=== PATIENT | female | born 1995 | race Caucasian/White ===

== ENCOUNTER 2017-09-14 18:30 | Emergency (ER) | payer SELFPAY ==
[~2017-09-14] VITALS: Ht 170.2 cm; Wt 64.0 kg
[~2017-09-14 18:30] MED LIST: Z.0.BCPILL PO
[2017-09-14 18:33] VITALS: BP 110/72; PULSE 73; RESP 14; TEMP 98.7; O2SAT 100
[2017-09-14] MEDS ORDERED: SODIUM CHLORIDE 0.9% FLUSH 10 ML FLUSH IVF PRN (19:15)
[2017-09-14] MEDS ORDERED: SODIUM CHLOR 0.9% 1000 ML INJ 1,000 ML IV ONE (19:15)
--- NOTE | 2017-09-14 19:21 | PD ---
HPI Chief Complaint: Syncope/Near-Syncope Time Seen by Provider: 19:15 Travel History International Travel<30 days: No Contact w/Intl Traveler<30days: No Traveled to known affect area: No History of Present Illness HPI 22-year-old female patient with history of previous syncopal episodes, worked up in the past, not found to have any obvious causes, here because she had a syncopal episode while having a bowel movement today. She apparently did hit her head and has a forehead ecchymosis. She denies any other injuries. She denies any chest pains, palpitations, shortness of breath, or other symptoms. She states that after she woke up, she did have a episode of vomiting and diarrhea. Modifying Factors: None Associated Signs & Symptoms: Syncope, nausea, vomiting, diarrhea Risk factor: Previous syncopal episodes PFSH Past Medical History ADHD: No Autoimmune Disease: No Blood Disorders: No Cancer: No Cardiovascular Problems: No Diabetes: No Diminished Hearing: No Genitourinary: No Medical other: Yes (hx "passing out") Musculoskeletal: No Neurologic: No Psychiatric: No Respiratory: No Immunizations Current: Yes Migraines: No Seizures: No Thyroid Disease: No Ulcer: No Tetanus Vaccination: Unknown Influenza Vaccination: No ?: Not LMP: 09/14/17 Past Surgical History Surgical History: No Previous Surgery Appendectomy: No Cholecystectomy: No Social History Alcohol Use: Yes (occasionally) Tobacco Use: No Substance Use: No (HX OF OVER THE COUNTER MEDICATION ABUSE) Allergies-Medications (Allergen,Severity, Reaction): Coded Allergies: clarithromycin (Unverified Allergy, Severe, SWELLING-SOB, 09/14/17) Reported Meds & Prescriptions Reported Meds & Active Scripts Active Reported Control Pills (Miscellaneous Medication) Tab 1 Tab PO DAILY Review of Systems Except as stated in HPI: all other systems reviewed are Neg Physical Exam Narrative GENERAL: Well-developed young female patient currently not in acute distress. Awake and oriented 3. SKIN: Focused skin assessment warm/dry. HEAD: Small area of ecchymosis over the left forehead. Normocephalic. EYES: Pupils equal and round. No scleral icterus. No injection or drainage. ENT: No nasal bleeding or discharge. Mucous membranes pink and moist. NECK: Trachea midline. No JVD. CARDIOVASCULAR: Regular rate and rhythm. No murmur appreciated. RESPIRATORY: No accessory muscle use. Clear to auscultation. Breath sounds equal bilaterally. GASTROINTESTINAL: Abdomen soft, non-tender, nondistended. Hepatic and splenic margins not palpable. MUSCULOSKELETAL: No obvious deformities. No clubbing. No cyanosis. No edema. NEUROLOGICAL: Awake and alert. No obvious cranial nerve deficits. Motor grossly within normal limits. Normal speech. PSYCHIATRIC: Appropriate mood and affect; insight and judgment normal. Data Data Last Documented VS Vital Signs Date Time Temp Pulse Resp B/P (MAP) Pulse Ox O2 Delivery O2 Flow Rate FiO2 09/14/17 19:51 89 16 100 Room Air 09/14/17 18:33 98.7 Orders Orders Electrocardiogram (09/14/17 19:15) Ed Urine Pregnancytest Poc (09/14/17 19:15) Complete Blood Count With Diff (09/14/17 19:15) Comprehensive Metabolic Panel (09/14/17 19:15) Magnesium (Mg) (09/14/17 19:15) Urinalysis - C+S If Indicated (09/14/17 19:15) Ct Brain W/O Iv Contrast(Rout) (09/14/17 19:15) Ecg Monitoring (09/14/17 19:15) Iv Access Insert/Monitor (09/14/17 19:15) Oximetry (09/14/17 19:15) Sodium Chloride 0.9% Flush (Ns Flush) (09/14/17 19:15) Sodium Chlor 0.9% 1000 Ml Inj (Ns 1000 M (09/14/17 19:15) Ed Discharge Order (09/14/17 21:40) Labs Laboratory Tests Test 09/14/17 19:43 09/14/17 21:15 White Blood Count 11.8 TH/MM3 Red Blood Count 4.72 MIL/MM3 Hemoglobin 14.0 GM/DL Hematocrit 41.0 % Mean Corpuscular Volume 86.8 FL Mean Corpuscular Hemoglobin 29.5 PG Mean Corpuscular Hemoglobin Concent 34.0 % Red Cell Distribution Width 13.0 % Platelet Count 259 TH/MM3 Mean Platelet Volume 7.9 FL Neutrophils (%) (Auto) 81.4 % Lymphocytes (%) (Auto) 14.2 % Monocytes (%) (Auto) 3.9 % Eosinophils (%) (Auto) 0.1 % Basophils (%) (Auto) 0.4 % Neutrophils # (Auto) 9.6 TH/MM3 Lymphocytes # (Auto) 1.7 TH/MM3 Monocytes # (Auto) 0.5 TH/MM3 Eosinophils # (Auto) 0.0 TH/MM3 Basophils # (Auto) 0.0 TH/MM3 CBC Comment DIFF FINAL Differential Comment Blood Urea Nitrogen 9 MG/DL Creatinine 0.81 MG/DL Random Glucose 97 MG/DL Total Protein 8.1 GM/DL Albumin 4.5 GM/DL Calcium Level 9.7 MG/DL Magnesium Level 2.0 MG/DL Alkaline Phosphatase 62 U/L Aspartate Amino Transf (AST/SGOT) 13 U/L Alanine Aminotransferase (ALT/SGPT) 11 U/L Total Bilirubin 0.8 MG/DL Sodium Level 139 MEQ/L Potassium Level 4.3 MEQ/L Chloride Level 107 MEQ/L Carbon Dioxide Level 24.5 MEQ/L Anion Gap 8 MEQ/L Estimat Glomerular Filtration Rate 87 ML/MIN Urine Color LIGHT-YELLOW Urine Turbidity CLEAR Urine pH 7.5 Urine Specific [place] 1.007 Urine Protein NEG mg/dL Urine Glucose (UA) NEG mg/dL Urine Ketones TRACE mg/dL Urine Occult Blood NEG Urine Nitrite NEG Urine Bilirubin NEG Urine Urobilinogen LESS THAN 2.0 MG/DL Urine Leukocyte Esterase NEG Urine RBC 1 /hpf Urine WBC LESS THAN 1 /hpf Microscopic Urinalysis Comment CULT NOT INDICATED MDM Medical Decision Making Medical Screen Exam Complete: Yes Emergency Medical Condition: Yes Medical Record Reviewed: Yes Interpretation(s) EKG shows normal sinus rhythm with a rate of 54 bpm. No signs of acute ST elevations or depressions. I do not see any signs of delta waves. Laboratory Tests Test 09/14/17 19:43 09/14/17 21:15 White Blood Count 11.8 TH/MM3 (4.0-11.0) Neutrophils (%) (Auto) 81.4 % (16.0-70.0) Neutrophils # (Auto) 9.6 TH/MM3 (1.8-7.7) Aspartate Amino Transf (AST/SGOT) 13 U/L (15-37) Estimat Glomerular Filtration Rate 87 ML/MIN (>89) Urine Ketones TRACE mg/dL (NEG) Last [address] 09/14/17 1910 Signed Impressions: Service Date/Time: Thursday, September 14, 2017 20:40 - CONCLUSION: No acute abnormality is identified. Sam Davies MD Differential Diagnosis Vasovagal syncope versus dehydration versus dysrhythmias versus intracranial injuries Narrative Course She has no focal neurological deficits currently. CAT scan of the brain is negative for any signs of acute intracranial processes. She has not . Lab work did not indicate significant electrolyte abnormalities. EKG did show initially that her heart rate was a little low in the 50s but her heart rate was fairly normal on further evaluation in the ER. At this point, she is asymptomatic and she has had multiple episodes of previous syncope. She may have had a vasovagal episode at this point. Abdomen is benign I do not suspect an acute intra-abdominal process. My plan would be to release her with follow- up to primary care physician. Return for any new issues or worsening symptoms as needed. The plan has been discussed with patient and parents and they state understanding. Diagnosis Primary Impression: Syncope Disposition: 01 DISCHARGE HOME Condition: Stable Ruthann Dawson MD Sep 14, 2017 19:21
[2017-09-14 19:51] VITALS: PULSE 89; RESP 16; O2SAT 100
[2017-09-14 20:27] LABS: AUTOMATED NEUTROPHIL # 9.6 TH/MM3 (1.8-7.7); BASOPHIL % 0.4 % (0.0-2.0); EOSINOPHIL % 0.1 % (0.0-4.0); LYMPH % 14.2 % (9.0-44.0); LYMPHOCYTE # 1.7 TH/MM3 (1.0-4.8); MEAN CELL VOLUME 86.8 FL (80.0-100.0); MEAN CORPUSCULAR HEMOGLOBIN 29.5 PG (27.0-34.0); MEAN PLATELET VOLUME 7.9 FL (7.0-11.0); MONO % 3.9 % (0.0-8.0); MONOCYTE # 0.5 TH/MM3 (0-0.9); NEUT % 81.4 % (16.0-70.0); PLATELET COUNT 259 TH/MM3 (150-450); RED BLOOD COUNT 4.72 MIL/MM3 (4.00-5.30); WHITE BLOOD COUNT 11.8 TH/MM3 (4.0-11.0)
[2017-09-14 20:45] LABS: ALBUMIN 4.5 GM/DL (3.4-5.0); AST (GOT) 13 U/L (15-37); BICARBONATE 24.5 MEQ/L (21.0-32.0); BLOOD UREA NITROGEN 9 MG/DL (7-18); CALCIUM 9.7 MG/DL (8.5-10.1); CHLORIDE 107 MEQ/L (98-107); CREATININE 0.81 MG/DL (0.50-1.00); GLOMERULAR FILTRATION RATE 87 ML/MIN (>89); GLUCOSE,RANDOM 97 MG/DL (74-106); SODIUM (NA) 139 MEQ/L (136-145)
[2017-09-14 20:51] LABS: ALKALINE PHOSPHATASE 62 U/L (45-117); ALT (GPT) 11 U/L (10-53); TOTAL BILIRUBIN ADULT 0.8 MG/DL (0.2-1.0); TOTAL PROTEIN 8.1 GM/DL (6.4-8.2)
--- NOTE | 2017-09-14 20:58 | RADRPT ---
EXAM DATE/TIME: 09/14/2017 20:40 [facility] COMPARISON: CT BRAIN W/O CONTRAST, April 12, 2007, 6:37. INDICATIONS : Syncopal episode. Left frontal contusion. RADIATION DOSE: 56.34 CTDIvol (mGy) MEDICAL HISTORY : None SURGICAL HISTORY : None. ENCOUNTER: Initial ACUITY: 1 day PAIN SCALE: 2/10 LOCATION: Left cranial TECHNIQUE: Multiple contiguous axial images were obtained of the head. Using automated exposure control and adj ustment of the mA and/or kV according to patient size, radiation dose was kept as low as reasonably a chievable to obtain optimal diagnostic quality images. DICOM format image data is available electro nically for review and comparison. FINDINGS: CEREBRUM: The ventricles are normal. No evidence of midline shift, mass lesion, hemorrhage or acute infarction . No extra-axial fluid collections are seen. POSTERIOR FOSSA: The cerebellum and brainstem are intact. The 4th ventricle is midline. The cerebellopontine angle i s unremarkable. EXTRACRANIAL: The visualized portion of the orbits is intact. SKULL: The calvaria is intact. No evidence of skull fracture. CONCLUSION: No acute abnormality is identified. Sam Davies MD on September 14, 2017 at 20:54 Board Certified Radiologist. This report was verified electronically.
[2017-09-14 21:36] LABS: BILIRUBIN, URINE NEG (NEG); BLOOD, URINE NEG (NEG); GLUCOSE,URINE NEG (NEG); KETONE, URINE TRACE mg/dL (NEG); NITRITE,URINE NEG (NEG); PH, URINE 7.5 (5.0-8.5); URINE COLOR LIGHT-YELLOW (YELLW/STRAW); URINE LEUKOCYTE ESTERASE NEG (NEG)
--- NOTE | 2017-09-15 06:50 | EKG ---
Date Performed: 09/14/2017 Time Performed: 19:33:33 PTAGE: 22 years EKG: SINUS BRADYCARDIA BORDERLINE ECG NO PREVIOUS TRACING DOCTOR: Alek High Interpretating Date/Time 09/15/2017 06:49:40
== END 2017-09-14 22:12 | disposition home or self-care (01) ==
LOC: NEPC 18:30
DX: R55 Syncope and collapse (principal); S00.83XA Contusion of other part of head, initial encounter; X58.XXXA Exposure to other specified factors, initial encounter
CPT/HCPCS: 70450; 80053; 81001; 83735; 84703; 85025; 93005; 99285; J7030